=== PATIENT | female | born 1965 | race Two or more races ===

== ENCOUNTER 2018-07-28 09:50 | Emergency (ER) ==
[~2018-07-28] VITALS: Ht 170.2 cm; Wt 194.1 kg
--- NOTE | 2018-07-28 10:05 | NUR ---
PT BIBRA FROM HOME C/O GENERALIZED WEAKNESS W/ NAUSEA AND VOMITING UPON WAKING UP TODAY. PT WAS AT URGENT CARE LAST SUNDAY AND WAS GIVEN ANTIOBIOTICS FOR CELLULITIS. PT ALSO C/O LOWER ABDOMINAL PAIN. REDNESS AND SWELLING. GOWNED AND PLACED ON MONITOR. 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 AWAITING MD DELACRUZ.
--- NOTE | 2018-07-28 10:08 | NUR ---
DR SANTIZO AT BEDSIDE FOR EVAL.
--- NOTE | 2018-07-28 10:09 | NUR ---
IV LINE STARTED BLOOD DRAWN AND SENT TO LAB.
[2018-07-28] MEDS ORDERED: ONDANSETRON HCL/PF 4 MG/2 ML VIAL ONE (10:12)
[2018-07-28] MEDS ORDERED: INSU500I SQ (10:19)
[2018-07-28] MEDS ORDERED: ASPI-1152 PO (10:19)
[2018-07-28] MEDS ORDERED: TIZA4TAB5 PO (10:19)
[2018-07-28] MEDS ORDERED: DICL75TA5 PO (10:19)
[2018-07-28] MEDS ORDERED: CIPR-262 PO (10:19)
[2018-07-28] MEDS ORDERED: DULO20CA PO (10:19)
[2018-07-28] MEDS ORDERED: METR-147 PO (10:19)
[2018-07-28 10:20] LABS: BASOPHILS % (AUTO) 0.5 % (0.0-2.0); EOSINOPHILS % (AUTO) 3.1 % (0.0-6.0); HEMATOCRIT 40 % (33-45); HEMOGLOBIN 13.3 g/dL (11.5-14.8); LYMPHOCYTES # (AUTO) 1.5 /CMM (0.8-4.8); LYMPHOCYTES % (AUTO) 14.7 % (20.0-44.0); MEAN CORPUSCULAR HGB CONC 33 g/dl (31.0-36.0); MEAN CORPUSCULAR VOLUME 85 fL (82-100); MONOCYTES % (AUTO) 10.1 % (2.0-12.0); NEUTROPHILS # (AUTO) 7.1 /CMM (1.8-8.9); NEUTROPHILS % (AUTO) 71.6 % (43.0-81.0); PLATELET COUNT (AUTO) 220 /CMM (150-450); RED BLOOD CELL COUNT(AUTO) 4.71 MIL/uL (4.0-5.2); WHITE BLOOD COUNT (AUTO) 9.9 K/uL (4.3-11.0)
[2018-07-28] MEDS ORDERED: PIPERACILLIN /TAZOBACTAM 3.375 G in IV D5W 50 ML IV ONE (10:30)
[2018-07-28] MEDS ORDERED: VANCOMYCIN 1 GM in IV D5W 250 ML IV ONE (10:30)
[2018-07-28] MEDS ORDERED: ONDANSETRON HCL/PF 4 MG/2 ML VIAL IVP ONE (10:30)
[2018-07-28] MEDS ORDERED: IV NS 0.9% 1,000 ML BAG IV ONE (10:30)
[2018-07-28 10:41] LABS: ALANINE AMINOTRANSFERASE 34 U/L (12-78); ALBUMIN 2.8 g/dL (3.4-5.0); ALKALINE PHOSPHATASE 88 U/L (46-116); ASPARTATE AMINOTRANSFERASE 31 U/L (15-37); BILIRUBIN,DIRECT 0.2 mg/dL (0.0-0.2); BILIRUBIN,TOTAL 0.5 mg/dL (0.2-1.0); CALCIUM, SERUM 8.5 mg/dL (8.5-10.1); CARBON DIOXIDE 26 mmol/L (21-32); CHLORIDE 105 mmol/L (98-107); CREATININE 0.9 mg/dL (0.6-1.3); GLUCOSE 74 mg/dL (74-106); POTASSIUM 3.4 mmol/L (3.5-5.1); SODIUM SERUM 140 mmol/L (136-145); TOTAL PROTEIN, SERUM 7.2 g/dL (6.4-8.2); UREA NITROGEN, BLOOD 13 mg/dL (7-18)
[2018-07-28 10:42] LABS: APPEARANCE,URINE Clear (CLEAR); BILIRUBIN,URINE SMALL (NEGATIVE); BLOOD, URINE Trace-intact Ery/uL (NEGATIVE); COLOR,URINE Dark (YELLOW); KETONES,URINE Negative (NEGATIVE); LEUKOCYTE ESTERASE ,URINE Trace (NEGATIVE); NITRITE, URINE Negative (NEGATIVE); PROTEIN,URINE 30 mg/dl (NEGATIVE); UGLUCOSE Negative (NEGATIVE)
[2018-07-28 10:51] LABS: BACTERIA,URINE Few /HPF (None Seen); SQUAMOUS EPITHELIAL CELL,UR Few /HPF (None Seen)
--- NOTE | 2018-07-28 12:33 | NUR ---
PT ACCEPTED AT [facility] PENDING BED ASSIGNMENT
--- NOTE | 2018-07-28 13:19 | NUR ---
TRANSFER INFO: [facility] DIRECT ADMIT TO ROOM [id number]. RN FOR REPORT [phone] ACCEPTING MD MARMOLEJO. AMBULANCE ETA TO FOLLOW...
--- NOTE | 2018-07-28 14:00 | NUR ---
REPORT CALLED AT [facility]. SPOKE TO WILLIAM. AWAITING TRANSFER AMBULANCE.
[2018-07-28 15:15] VITALS: BP 140/74
--- NOTE | 2018-07-28 15:15 | NUR ---
TRANSPORT AMBULANCE AT BEDSIDE. AMBULANCE UNABLE TO TRANSPORT PT TO [facility] BECAUSE THEY NEED A BARIATRIC BED AND WILL BE BACK IN AN HOUR.
--- NOTE | 2018-07-28 15:20 | NUR ---
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
--- NOTE | 2018-07-28 16:27 | NUR ---
PT TRANSFERED TO [facility]. STABLE CONDITION.
== END 2018-07-28 16:29 | disposition short-term general hospital (02) ==
LOC: ER 09:53
DX: L03.311 Cellulitis of abdominal wall (principal); E11.9 Type 2 diabetes mellitus without complications; R53.1 Weakness; M54.30 Sciatica, unspecified side; Z79.4 Long term (current) use of insulin; Z79.82 Long term (current) use of aspirin; Z79.899 Other long term (current) drug therapy
CPT/HCPCS: 36415; 71045; 80048; 80076; 81001; 83605; 84484; 85025; 85730; 87040 ×2; 87086; 93005; 96365; 96367; 96375; 99285; J2405; J2543; J3370; J7030; J7060 ×2; 81000-TC